=== PATIENT | female | born 1950 | race Caucasian/White ===

== ENCOUNTER 2018-07-03 12:48 | Outpatient (CLI) | payer MEDICARE, OTHER ==
--- NOTE | 2018-07-03 13:55 | RAD ---
TWO VIEWS LUMBAR SPINE: Date: 07-03-18 Comparison: None. History: Back pain, arthritis. FINDINGS: Five lumbar type vertebral bodies are present with intact pedicles on frontal imaging. There is disc space narrowing at L4-5 and L5-S1. There is facet hypertrophy at L4-5 and L5-S1. No acute osseous abn ormality. IMPRESSION: Lower lumbar spine degenerative change. POS: JUNE
== END 2018-07-03 12:49 | disposition home or self-care (01) ==
LOC: BICRAD 12:48
PROVIDERS: ATTEND Internal Medicine Rheumatology
DX: M54.5 Low back pain (principal); M47.816 Spondylosis without myelopathy or radiculopathy, lumbar region
CPT/HCPCS: 72100

== ENCOUNTER 2020-10-22 10:51 | Outpatient (CLI) | payer MEDICARE, OTHER | END 2020-10-22 10:52 | disposition home or self-care (01) | LOC: BICMRI 10:51 | PROVIDERS: ATTEND Internal Medicine Rheumatology | DX: M17.11 Unilateral primary osteoarthritis, right knee (principal); S83.241A Other tear of medial meniscus, current injury, right knee, initial encounter; R60.0 Localized edema ==

== ENCOUNTER 2023-03-09 11:10 | Outpatient (CLI) | payer MEDICARE | END 2023-03-09 11:11 | disposition home or self-care (01) | LOC: BICCT 11:10 | PROVIDERS: ATTEND Internal Medicine | DX: Z12.2 Encounter for screening for malignant neoplasm of respiratory organs (principal); J44.9 Chronic obstructive pulmonary disease, unspecified; R91.1 Solitary pulmonary nodule; J98.4 Other disorders of lung; Z87.891 Personal history of nicotine dependence | CPT/HCPCS: 71271 ==

== ENCOUNTER 2024-04-12 11:00 | Outpatient (CLI) | payer MEDICARE | END 2024-04-12 11:01 | disposition home or self-care (01) | LOC: PET 11:00 | PROVIDERS: ATTEND Internal Medicine | DX: R91.1 Solitary pulmonary nodule (principal) | CPT/HCPCS: 78815; A9552 ==